=== PATIENT | male | born 1945 | race Caucasian/White ===

== ENCOUNTER 2016-10-10 06:00 | Day surgery (SDC) | payer OTHER ==
[2016-10-08 12:43] VITALS: BMI 34.9
[2016-10-10] MEDS ORDERED: PROPOFOL 20 ML ONE ×2 (07:00)
[2016-10-10] MEDS ORDERED: MIDAZOLAM HCL 2 MG/2 ML SINGLE DOSE VIAL ONE (07:00)
[2016-10-10] MEDS ORDERED: ceFAZolin SODIUM 1 GM VIAL ONE (07:00)
[2016-10-10] MEDS ORDERED: SUCCINYLCHOLINE CHLORIDE 200 MG/10 ML VIAL ONE (07:00)
[2016-10-10] MEDS ORDERED: DEXAMETHASONE SOD PHOSPHATE 4 MG/1 ML VIAL ONE (07:01)
[2016-10-10] MEDS ORDERED: LIDOCAINE HCL 2% JELLY (5 ML/TUBE) ONE (07:01)
[2016-10-10] MEDS ORDERED: ONDANSETRON 4 MG/2 ML VIAL ONE ×2 (07:01→08:56)
[2016-10-10] MEDS ORDERED: KETOROLAC TROMETHAMINE 30 MG/1 ML VIAL ONE (07:01)
[2016-10-10] MEDS ORDERED: EPINEPHrine/PF 1 MG/1 ML (1:1,000) AMPULE ONE (07:09)
[2016-10-10] MEDS ORDERED: BUPIVACAINE HCL/PF 2.5 MG/ML - 30 ML VIAL IJ ONE (07:09)
[2016-10-10] MEDS ORDERED: ePHEDrine SULFATE 50 MG/1 ML AMPULE ONE (08:09)
[2016-10-10] MEDS ORDERED: EPINEPHrine 1:1,000 1 MG/1 ML - 30ML VIAL (INJECTION) ONE (08:24)
[2016-10-10] MEDS ORDERED: BUPIVACAINE HCL/PF 0.25% (2.5MG/ML) 10 ML VIAL IJ ONE (08:28)
[2016-10-10] MEDS ORDERED: oxyCODONE HCL 5 MG TABLET PO PRN ×2 (09:28→11:27)
[2016-10-10] MEDS ORDERED: LACTATED RINGERS SOLUTION 1,000 ML IV SCH (09:30)
[2016-10-10 10:31] VITALS: TEMP 98.2
[2016-10-10] MEDS ORDERED: ONDANSETRON 4 MG/2 ML VIAL IVPUSH PRN (11:26)
[2016-10-10 11:56] VITALS: BP 136/76; PULSE 60
--- NOTE | 2016-10-11 09:27 | OP ---
DATE OF OPERATION: 10/10/2016 SURGEON: Renee Chambers MD ASSISSTANT: MYA Lang PREOPERATIVE DIAGNOSIS: 1. Right knee medial and lateral meniscal tears. 2. Right knee cartilage injury. 3. Right knee synovitis. POSTOPERATIVE DIAGNOSIS: 1. Right knee medial and lateral meniscal tears. 2. Right knee cartilage injury. 3. Right knee synovitis. PROCEDURE: 1. Right knee arthroscopy with partial meniscectomies of medial and lateral meniscus. 2. Right knee arthroscopy with chondroplasty and abrasion-plasty. 3. Right knee arthroscopy with synovectomy - major CPT code 01957, 16571, 21883. FINDINGS: 1. Medial meniscus body and horn tear. 2. Lateral meniscus posterior horn tear. 3. Synovitis, patellofemoral and medial lateral notch area. 4. Central grade 2-3 cartilage injury in the medial femoral condyle with anteromedial grade 4 changes, medial femoral condyle, central grade 2 changes, medial tibial plateau. 5. ACL and PCL intact. 6. Diffuse grade 1-2 cartilage injury to lateral joint line. 7. Central grade 2-4 cartilage injury, patella and patellofemoral trochlea. DESCRIPTION OF PROCEDURE: Informed consent was obtained the patient was taken to the operating room where the right lower extremity was prepped and draped in a sterile fashion. Tourniquet was placed on the upper thigh but not inflated. Using standard arthroscopic technique, a lateral incision and portal were made which allowed for introduction of the camera into the suprapatellar bursa. This was then taken to the medial joint line where under direct visualization a medial incision and portal were made. Excessive synovium noted in the medial, lateral, patellofemoral and notch area was removed by up-biter shaver and Bovie cautery. This was found to bring inflammatory tissue into the joint surface, a source of joint pain and dysfunction. Probing of the medial and lateral meniscus found tears described in the findings. These were removed with an up-biter, shaver, and taken back to stable rim. Grade 2-3 degenerative changes were treated with chondroplasty, removing all flaking surfaces with low setting Bovie used along the periphery. Grade 4 changes were treated with abrasion-plasty. All areas of the knee were once again re-examined. The knee was then drained. A single suture was placed on all portals. Sterile dressing was placed. The patient was transferred to the recovery room. RENEE CHAMBERS M.D. [id number]
--- NOTE | 2016-10-15 13:41 | PATH ---
Surgical Pathology Report Patient Name: DOMINIK MASON [facility]. Rec. #: [id number] /Age/Gender: 1945 (Age: 71) / M Account: [id number] Location: [facility] Taken: 10/10/2016 Received: 10/10/2016 Reported: 10/15/2016 Physicians: John Xiao M.D. Specimen(s) Received RIGHT KNEE SHAVINGS Clinical History Internal derangement right knee Final Diagnosis KNEE, RIGHT, ARTHROSCOPIC SHAVINGS: FIBROSYNOVIAL AND FIBROCARTILAGINOUS TISSUE. Electronically Signed Keren Butler M.D. Gross Description Received in formalin, labeled "right knee shavings," is a 4.5 x 4.0 x 0.7 cm. aggregate of tuttle-yellow soft tissue fragments. A business center representative portion is submitted in one cassette. /10/10/201610/10/2016
== END 2016-10-10 11:30 | disposition home or self-care (01) ==
LOC: FASU 06:00
PROVIDERS: ATTEND Orthopaedic Surgery
PROC: 0SBC4ZZ Excision of Right Knee Joint, Percutaneous Endoscopic Approach (ICD-10-PCS; 2016-10-10)
PROC: 0SBC4ZZ Excision of Right Knee Joint, Percutaneous Endoscopic Approach (ICD-10-PCS; 2016-10-10)
PROC: 0SBC4ZZ Excision of Right Knee Joint, Percutaneous Endoscopic Approach (ICD-10-PCS; principal; 2016-10-10 08:09)
DX: S83.281A Other tear of lateral meniscus, current injury, right knee, initial encounter (principal); M65.861 Other synovitis and tenosynovitis, right lower leg; X58.XXXA Exposure to other specified factors, initial encounter; Y93.9 Activity, unspecified; Y92.9 Unspecified place or not applicable; Y99.9 Unspecified external cause status
CPT/HCPCS: 88304-TC; 94760

== ENCOUNTER 2023-05-12 16:06 | Observation (INO) | payer OTHER ==
[2023-05-12] MEDS ORDERED: ACETAMINOPHEN 325 MG TABLET (FP) PO ONE (16:33)
[2023-05-12] MEDS ORDERED: SODIUM CHLORIDE 0.9% 1000 ML INFUS.BAG IV ONE (16:33)
[2023-05-12] MEDS ORDERED: PIPERACILLIN/TAZOB 4.5 GM 4.5 GM in DEXTROSE 5%-WATER 100 ML IVPB ONE (16:35)
[2023-05-12] MEDS ORDERED: ACETAMINOPHEN 325 MG TABLET (FP) ONE (16:43)
[2023-05-12] MEDS ORDERED: PIPERACILLIN/TAZOBACTAM 4.5 GM VIAL IVPB ONE (16:44)
[2023-05-12 16:54] LABS: HEMOGLOBIN 13.8 G/dL (11.7-16.9); MCHC 32.9 g/dl (32.0-35.9); MEAN CELL VOLUME 91.4 fl (80-96); PLATELET COUNT 202.4 10^3/uL (134-434); RDW 15.2 % (11.9-15.9); WHITE BLOOD COUNT 8.4 10^3/uL (4.0-10.8)
[2023-05-12 17:09] LABS: INR 1.26 (0.83-1.09); PROTHROMBIN TIME (PATIENT) 14.6 SEC (9.7-13.0)
[2023-05-12 17:12] LABS: ACTIVATED PTT 27.6 SECONDS (25.2-36.5); ALBUMIN 4.1 g/dl (3.4-5.0); BLOOD UREA NITROGEN 18.3 mg/dl (7-18); CREATININE 1.3 mg/dl (0.6-1.3); POTASSIUM 3.9 mmol/L (3.5-5.1); SGOT/AST 32.2 U/L (15-37); SGPT/ALT 34.3 U/L (7-52); TOT PROT 6.5 g/dl (6.4-8.2)
[2023-05-12 17:14] LABS: EPITHELIAL CELLS FEW /hpf
[2023-05-12 17:30] LABS: PLATELET ESTIMATE ADEQUATE
[2023-05-12 18:49] LABS: BILIRUBIN,TOTAL 0.5 mg/dL (0.2-1)
[2023-05-12] MEDS ORDERED: DOCUSATE SODIUM 100 MG CAPSULE (FP) PO PRN (19:40)
[2023-05-12 20:07] VITALS: BMI 31.8
[2023-05-12] MEDS: SODIUM CHLORIDE 1,000 ML IV SCH (20:11)
[2023-05-12] MEDS: ATORVASTATIN CA 10 MG TABLET (FP) PO SCH (21:14)
[2023-05-12] MEDS: PIPERACILLIN/TAZOB 3.375 GM 3.375 GM in DEXTROSE 5%-WATER - 50 ML IVPB SCH (23:29)
[2023-05-13] MEDS ORDERED: ACETAMINOPHEN 1000 MG/100 ML BAG IVPB PRN (01:00)
[2023-05-13] MEDS ORDERED: POLYETHYLENE GLYCOL (HEALTHYLAX) 3350 17 GM PACKET PO PRN (02:27)
[2023-05-13] MEDS: PIPERACILLIN/TAZOB 3.375 GM 3.375 GM in DEXTROSE 5%-WATER - 50 ML IVPB SCH ×4 (05:56→23:15)
[2023-05-13 08:06] LABS: BLOOD UREA NITROGEN 15.6 mg/dl (7-18); CALCIUM 7.9 mg/dl (8.5-10.1); CREATININE 1.4 mg/dl (0.6-1.3); PHOSPHOROUS 2.48 (2.5-4.9)
[2023-05-13] MEDS ORDERED: HEPARIN NA (PORCINE) 5,000 UNITS/ML 1ML VIAL SQ SCH (10:00)
[2023-05-13 10:27] LABS: BASO % 0.5 % (0-2.0); EOS % 1.6 % (0-4.5); HEMATOCRIT 37.8 % (35.4-49); HEMOGLOBIN 12.2 GM/dL (11.7-16.9); LYMPH % 10.4 % (8-40); MCH 29.1 pg (25.7-33.7); MCHC 32.2 g/dl (32.0-35.9); MEAN CELL VOLUME 90.2 fl (80-96); MEAN PLT VOLUME 8.2 fl (7.5-11.1); MONO % 9.5 % (3.8-10.2); PLATELET COUNT 200 10^3/uL (134-434); RBC 4.19 M/mm3 (4.00-5.60); RDW 14.4 % (11.9-15.9); WHITE BLOOD COUNT 6.8 K/mm3 (4.0-10.0)
[2023-05-13] MEDS: amLODIPine BESYLATE 5 MG TABLET (FP) PO SCH (10:56)
[2023-05-13] MEDS: ASPIRIN COATED 81 MG TABLET.EC PO SCH (10:56)
[2023-05-13] MEDS: LISINOPRIL 20 MG TABLET PO SCH (10:56)
[2023-05-13] MEDS: NAPROXEN 500 MG TABLET PO SCH ×2 (10:59→21:09)
[2023-05-13] MEDS: LIDOCAINE 5% TOPICAL PATCH TP SCH (10:59)
[2023-05-13] MEDS ORDERED: POLYETHYLENE GLYCOL (HEALTHYLAX) 3350 17 GM PACKET PO SCH (11:00)
[2023-05-13] MEDS: ATORVASTATIN CA 10 MG TABLET (FP) PO SCH (21:09)
[2023-05-13] MEDS ORDERED: LIDOCAINE PATCH REMOVAL MC SCH (22:00)
[2023-05-14] MEDS ORDERED: ACETAMINOPHEN 325 MG TABLET (FP) PO PRN (01:00)
[2023-05-14 06:37] VITALS: PULSE 64
[2023-05-14] MEDS: PIPERACILLIN/TAZOB 3.375 GM 3.375 GM in DEXTROSE 5%-WATER - 50 ML IVPB SCH ×2 (06:41→12:38)
[2023-05-14] MEDS: SODIUM CHLORIDE 1,000 ML IV SCH (06:46)
[2023-05-14 09:18] VITALS: BP 135/66; RESP 18; TEMP 98.5
[2023-05-14] MEDS: DOCUSATE SODIUM 100 MG CAPSULE (FP) PO SCH ×2 (09:38→16:12)
[2023-05-14] MEDS: ASPIRIN COATED 81 MG TABLET.EC PO SCH (09:39)
[2023-05-14] MEDS: LISINOPRIL 20 MG TABLET PO SCH (09:39)
[2023-05-14] MEDS: LIDOCAINE 5% TOPICAL PATCH TP SCH (09:39)
[2023-05-14] MEDS: amLODIPine BESYLATE 5 MG TABLET (FP) PO SCH (09:39)
[2023-05-14] MEDS: NAPROXEN 500 MG TABLET PO SCH (09:39)
[2023-05-14] MEDS ORDERED: ERTAPENEM SODIUM 1 GM in SODIUM CHLORIDE 50 ML IVPB SCH (10:30)
== END 2023-05-14 17:03 | disposition home or self-care (01) ==
LOC: FER 16:06 → FM/S 16:35 → INTOOBSV 16:35 → FM/S 18:32
PROVIDERS: ADMIT Internal Medicine; ATTEND Internal Medicine
PROC: 05HY33Z Insertion of Infusion Device into Upper Vein, Percutaneous Approach (ICD-10-PCS; principal; 2023-05-14)
PROC: 3E03329 Introduction of Other Anti-infective into Peripheral Vein, Percutaneous Approach (ICD-10-PCS; 2023-05-14)
DX: N39.0 Urinary tract infection, site not specified (principal); Z98.890 Other specified postprocedural states; E78.5 Hyperlipidemia, unspecified; G89.29 Other chronic pain; I10 Essential (primary) hypertension; M54.50 Low back pain, unspecified
CPT/HCPCS: 36573; C8957; 0241U-QW; 36415; 36569; 71045-TC-FY; 76775-TC; 76856-TC; 77001-TC-FY; 80048; 80053; 81003; 81015; 83735; 84100; 85025; 85027; 85610; 85730; 87040; 87086; 93005; 99285-25; C1751; G0378